=== PATIENT | female | born 1980 | race Caucasian/White ===

== ENCOUNTER 2018-11-02 20:37 | Inpatient (IN) | payer MEDICAID ==
[~2018-11-02] VITALS: Ht 162.6 cm; Wt 57.6 kg
[2018-11-06 07:17] VITALS: BP 109/59
== END 2018-11-06 11:45 | disposition home or self-care (01) | DRG 441 ==
LOC: ED 21:20 → EDIP 22:09 → 4EST 11-03 05:39 → DCLOUNGE 11-06 11:38
PROVIDERS: ADMIT Internal Medicine; ATTEND Internal Medicine
PROC: 0W9G3ZZ Drainage of Peritoneal Cavity, Percutaneous Approach (ICD-10-PCS; 2018-11-03)
PROC: 0W9G3ZZ Drainage of Peritoneal Cavity, Percutaneous Approach (ICD-10-PCS; principal; 2018-11-05)
DX: K72.90 Hepatic failure, unspecified without coma (principal); E43 Unspecified severe protein-calorie malnutrition; D61.818 Other pancytopenia; E87.1 Hypo-osmolality and hyponatremia; E87.2 Acidosis; K76.6 Portal hypertension; I85.10 Secondary esophageal varices without bleeding; K70.31 Alcoholic cirrhosis of liver with ascites; B18.2 Chronic viral hepatitis C; Z68.21 Body mass index [BMI] 21.0-21.9, adult; D53.9 Nutritional anemia, unspecified; D69.59 Other secondary thrombocytopenia; E87.6 Hypokalemia; F10.21 Alcohol dependence, in remission; F17.210 Nicotine dependence, cigarettes, uncomplicated; K31.89 Other diseases of stomach and duodenum; K80.20 Calculus of gallbladder without cholecystitis without obstruction; Z98.51 Tubal ligation status
CPT/HCPCS: 36415; 83036; 99285; J3490; 49083; 76700; 80053; 80061; 81001; 82140; 82436; 82607; 83690; 83735; 83930; 83935; 84133; 84300; 84439; 84443; 85025; 85610; 93005; G0378; P9047

== ENCOUNTER 2019-03-10 18:57 | Inpatient (IN) | payer MEDICAID, OTHER ==
[~2019-03-10] VITALS: Ht 162.6 cm; Wt 54.2 kg
[~2019-03-10 18:57] MED LIST: FURO-92 PO; FURO40TA6 PO; LACT10SO28 PO; LACT20SO13 PO; MIDO10TA PO; SOFO1TAB PO; SPIR100T4 PO; SPIR50TA4 PO; SULF1TAB24 PO
--- NOTE | 2019-03-10 19:09 | NUR ---
38y f bib ems from home for sob, pt states feels pressure on diaphragm, pt has liver failure and gets drained once a week it has been 12 days since last drained. pt connected to all monitors vss, call light in reach
--- NOTE | 2019-03-10 19:10 | NUR ---
pa at bedside
--- NOTE | 2019-03-10 19:41 | NUR ---
PT EDUCATED ON NEED FOR URINE SAMPLE PT STS UNABLE TO WALK TO RESTROOM. OFFERED STRAIGHT CATH, PA TO BE UPDATED
[2019-03-10 19:55] LABS: ALANINE AMINOTRANSFERASE 25 U/L (12-78); ALBUMIN 2.2 g/dL (3.4-5.0); ANION GAP 8 mmol/L (5-15); CALCIUM 7.6 mg/dL (8.5-10.1); CHLORIDE 100 mmol/L (98-107); CREATININE 0.48 mg/dL (0.55-1.02)
[2019-03-10 19:57] LABS: ALKALINE PHOSPHATASE 157 U/L (45-117); BILIRUBIN,TOTAL 12.6 mg/dL (0.2-1.0); TOTAL PROTEIN 6.3 g/dL (6.4-8.2)
[2019-03-10 20:11] LABS: MD YES; MEAN CORPUSCULAR HEMOGLOBIN 36.9 pg (27.0-34.8); MEAN CORPUSCULAR HGB CONC 33.9 g/dL (32.4-35.8); MEAN CORPUSCULAR VOLUME 108.8 fL (80-100); MEAN PLATELET VOLUME 7.6 fL (7.4-10.4); RED BLOOD COUNT 2.11 x10^6/uL (3.82-5.3); RED CELL DISTRIBUTION WIDTH 18.2 % (9.6-15.2)
[2019-03-10 20:15] LABS: PLATELET COUNT 41 x10^3/uL (130-400)
--- NOTE | 2019-03-10 20:16 | NUR ---
CRITICAL VALUE FROM LO IN LAB PLATELET COUNT OF 41
[2019-03-10 20:19] LABS: EOS% (MANUAL) 2 % (1-7); LYMPH#(MANUAL) 0.26 x10^3/uL (1-3.4); LYMPHS% (MANUAL) 5 % (22-44); MONOS#(MANUAL) 0.57 x10^3/uL (0.3-2.7); MONOS% (MANUAL) 11 % (2-9); SEG#(MANUAL) 4.26 x10^3/uL (1.8-6.8); SEGS% (MANUAL) 82 % (42-75)
[2019-03-10 20:20] LABS: ANISOCYTOSIS 1+
[2019-03-10] MEDS ORDERED: LIDOCAINE-MPF 1%, 5ML ONE (20:20)
[2019-03-10 20:22] LABS: <PLATELET ESTIMATE> DECREASED; <PLT MORPHOLOGY> NORMAL PLT MORPH
--- NOTE | 2019-03-10 20:23 | NUR ---
PA AT BEDSIDE FOR PARACENTESIS.
--- NOTE | 2019-03-10 20:55 | NUR ---
SUCESSFUL PARACENTESIS DRAINED 3.5 LITERS
[2019-03-10 21:19] LABS: HCG UR SG 1.022 (1.003-1.030)
[2019-03-10 21:32] LABS: CULTURE INDICATED? YES; MICROSCOPIC INDICATED
[2019-03-10] MEDS ORDERED: ONDANSETRON 2MG/ML, 2ML IVPush ONE (22:30)
[2019-03-10] MEDS ORDERED: MORPHINE SULFATE 4 MG/ML, 1ML IVPush ONE (22:30)
[2019-03-10] MEDS ORDERED: CEFTRIAXONE PMX 2GM/50ML 50 ML IV ONE (22:30)
[2019-03-10] MEDS ORDERED: ONDANSETRON 2MG/ML, 2ML ONE (22:36)
[2019-03-10] MEDS ORDERED: CEFTRIAXONE PMX 2GM/50ML 50 ML ONE (22:36)
[2019-03-10] MEDS ORDERED: MORPHINE SULFATE 4 MG/ML, 1ML ONE (22:36)
[2019-03-11] MEDS ORDERED: ONDANSETRON 2MG/ML, 2ML IVPush PRN (00:30)
[2019-03-11] MEDS ORDERED: LACTULOSE 20 GM/30 ML UDC PO PRN (00:30)
[2019-03-11] MEDS ORDERED: morphine SULFATE 10 MG/ML, 1ML IVPush PRN (00:30)
[2019-03-11 01:25] VITALS: BP_SYST 112; BP_SYST 113; BP_DIAS 69
[2019-03-11] MEDS: MIDODRINE 5 MG TABLET PO SCH ×4 (01:41→21:36)
[2019-03-11 03:25] VITALS: BP 112/68
[2019-03-11 06:20] LABS: MEAN CORPUSCULAR HEMOGLOBIN 36.6 pg (27.0-34.8); MEAN CORPUSCULAR HGB CONC 33.7 g/dL (32.4-35.8); MEAN CORPUSCULAR VOLUME 108.6 fL (80-100); MEAN PLATELET VOLUME 6.9 fL (7.4-10.4); PLATELET COUNT 51 x10^3/uL (130-400); RED BLOOD COUNT 1.97 x10^6/uL (3.82-5.3); RED CELL DISTRIBUTION WIDTH 17.7 % (9.6-15.2)
[2019-03-11 06:33] LABS: ALANINE AMINOTRANSFERASE 20 U/L (12-78); ALBUMIN 1.8 g/dL (3.4-5.0); ANION GAP 6 mmol/L (5-15); CALCIUM 7.7 mg/dL (8.5-10.1); CHLORIDE 101 mmol/L (98-107); CREATININE 0.44 mg/dL (0.55-1.02)
[2019-03-11 06:35] LABS: ALKALINE PHOSPHATASE 119 U/L (45-117); BILIRUBIN,TOTAL 11.3 mg/dL (0.2-1.0); TOTAL PROTEIN 5.2 g/dL (6.4-8.2)
[2019-03-11 07:52] LABS: BASOPHILS # (AUTO) 0.04 x10^3/uL (0-0.1); BASOPHILS % (AUTO) 1 % (0-1); EOSINOPHILS # (AUTO) 0.14 x10^3/uL (0-0.4); EOSINOPHILS % (AUTO) 3 % (1-7); LYMPHOCYTES # (AUTO) 0.36 x10^3/uL (1-3.4); LYMPHOCYTES % (AUTO) 6 % (22-44); MD SCAN; MONOCYTES # (AUTO) 0.68 x10^3/uL (0.2-0.8); MONOCYTES % (AUTO) 12 % (2-9); NEUTROPHILS % (AUTO) 79 % (42-75)
[2019-03-11] MEDS: LACTULOSE 10 GM/15 ML UDC PO SCH ×3 (09:12→21:35)
[2019-03-11] MEDS: SPIRONOLACTONE 50 MG TABLET PO SCH (09:12)
[2019-03-11] MEDS: FUROSEMIDE 40 MG TABLET PO SCH ×2 (09:13→18:02)
[2019-03-11] MEDS: OMEPRAZOLE 20 MG CAPSULE.DR PO SCH (09:13)
[2019-03-11 09:24] VITALS: BP 95/62
[2019-03-11 09:29] LABS: INTERNATIONAL NORMALIZED RATIO 1.78 (0.93-1.1); PROTHROMBIN TIME 18.3 Seconds (9.6-11.5)
[2019-03-11 15:58] VITALS: BP 100/62
[2019-03-11 16:48] LABS: AMPHETAMINE SCREEN, URINE Negative (Negative); BARBITURATE SCREEN, URINE Negative (Negative); BENZODIAZEPINE SCREEN, URINE Negative (Negative); CANNABINOID SCREEN, URINE Negative (Negative); COCAINE SCREEN, URINE Negative (Negative); METHADONE SCREEN, URINE Negative (Negative); OPIATE SCREEN, URINE Negative (Negative)
[2019-03-11 21:31] VITALS: BP 94/61
[2019-03-11] MEDS: METRONIDAZOLE PMX 500MG/100ML 100 ML IV SCH (21:35)
[2019-03-11] MEDS: CEFTRIAXONE PMX 1GM/50ML 50 ML IV SCH (22:56)
[2019-03-12] VITALS (7 sets, daily range): BP systolic 92–111; BP diastolic 58–72
[2019-03-12] MEDS: METRONIDAZOLE PMX 500MG/100ML 100 ML IV SCH ×3 (04:56→21:07)
[2019-03-12 05:27] LABS: ALBUMIN 1.8 g/dL (3.4-5.0); CALCIUM 7.5 mg/dL (8.5-10.1); CHLORIDE 100 mmol/L (98-107)
[2019-03-12 05:33] LABS: ALANINE AMINOTRANSFERASE 19 U/L (12-78); ALKALINE PHOSPHATASE 127 U/L (45-117); ANION GAP 5 mmol/L (5-15); BILIRUBIN,TOTAL 9.2 mg/dL (0.2-1.0); CREATININE 0.57 mg/dL (0.55-1.02); TOTAL PROTEIN 5.2 g/dL (6.4-8.2)
[2019-03-12 05:34] LABS: MEAN CORPUSCULAR HEMOGLOBIN 36.1 pg (27.0-34.8); MEAN CORPUSCULAR HGB CONC 33.7 g/dL (32.4-35.8); MEAN CORPUSCULAR VOLUME 107.2 fL (80-100); MEAN PLATELET VOLUME 6.5 fL (7.4-10.4); PLATELET COUNT 54 x10^3/uL (130-400); RED BLOOD COUNT 1.87 x10^6/uL (3.82-5.3); RED CELL DISTRIBUTION WIDTH 17.4 % (9.6-15.2)
[2019-03-12 06:13] LABS: BASOPHILS # (AUTO) 0.02 x10^3/uL (0-0.1); BASOPHILS % (AUTO) 0 % (0-1); EOSINOPHILS # (AUTO) 0.15 x10^3/uL (0-0.4); EOSINOPHILS % (AUTO) 3 % (1-7); LYMPHOCYTES # (AUTO) 0.33 x10^3/uL (1-3.4); LYMPHOCYTES % (AUTO) 6 % (22-44); MD SCAN; MONOCYTES # (AUTO) 0.68 x10^3/uL (0.2-0.8); MONOCYTES % (AUTO) 12 % (2-9); NEUTROPHILS # (AUTO) 4.32 x10^3/uL (1.8-6.8); NEUTROPHILS % (AUTO) 79 % (42-75)
[2019-03-12] MEDS: OMEPRAZOLE 20 MG CAPSULE.DR PO SCH (09:19)
[2019-03-12] MEDS: LACTULOSE 10 GM/15 ML UDC PO SCH ×3 (09:19→21:07)
[2019-03-12] MEDS: SPIRONOLACTONE 50 MG TABLET PO SCH (09:19)
[2019-03-12] MEDS: FUROSEMIDE 40 MG TABLET PO SCH ×2 (09:19→16:14)
[2019-03-12] MEDS: MIDODRINE 5 MG TABLET PO SCH ×3 (09:20→21:08)
[2019-03-12] MEDS ORDERED: POTASSIUM PHOSPHATE 22 MEQ in SODIUM CHLORIDE 0.9% 500 ML IV ONE (20:00)
[2019-03-12] MEDS ORDERED: MAGNESIUM SULFATE PMX 4GM/100M 100 ML IV ONE (20:00)
[2019-03-12] MEDS: CEFTRIAXONE PMX 1GM/50ML 50 ML IV SCH (22:41)
[2019-03-13 02:28] VITALS: BP 97/56
[2019-03-13] MEDS: METRONIDAZOLE PMX 500MG/100ML 100 ML IV SCH ×3 (04:56→20:53)
[2019-03-13 05:41] LABS: CHLORIDE 100 mmol/L (98-107)
[2019-03-13 05:47] LABS: ALANINE AMINOTRANSFERASE 20 U/L (12-78); ALKALINE PHOSPHATASE 129 U/L (45-117); ANION GAP 7 mmol/L (5-15); BILIRUBIN,TOTAL 10.5 mg/dL (0.2-1.0); CALCIUM 7.6 mg/dL (8.5-10.1); CREATININE 0.57 mg/dL (0.55-1.02); TOTAL PROTEIN 5.6 g/dL (6.4-8.2)
[2019-03-13 06:56] LABS: BASOPHILS # (AUTO) 0.02 x10^3/uL (0-0.1); BASOPHILS % (AUTO) 0 % (0-1); EOSINOPHILS # (AUTO) 0.14 x10^3/uL (0-0.4); EOSINOPHILS % (AUTO) 3 % (1-7); LYMPHOCYTES # (AUTO) 0.35 x10^3/uL (1-3.4); LYMPHOCYTES % (AUTO) 7 % (22-44); MD SCAN; MEAN CORPUSCULAR HEMOGLOBIN 35.5 pg (27.0-34.8); MEAN CORPUSCULAR HGB CONC 33.7 g/dL (32.4-35.8); MEAN CORPUSCULAR VOLUME 105.2 fL (80-100); MEAN PLATELET VOLUME 6.9 fL (7.4-10.4); MONOCYTES # (AUTO) 0.65 x10^3/uL (0.2-0.8); MONOCYTES % (AUTO) 13 % (2-9); NEUTROPHILS # (AUTO) 3.89 x10^3/uL (1.8-6.8); NEUTROPHILS % (AUTO) 77 % (42-75); RED BLOOD COUNT 2.31 x10^6/uL (3.82-5.3); RED CELL DISTRIBUTION WIDTH 19.9 % (9.6-15.2)
[2019-03-13 07:00] LABS: PLATELET COUNT 45 x10^3/uL (130-400)
[2019-03-13 07:20] VITALS: BP 109/69
[2019-03-13] MEDS: LACTULOSE 10 GM/15 ML UDC PO SCH ×3 (09:02→20:53)
[2019-03-13] MEDS: MIDODRINE 5 MG TABLET PO SCH ×3 (09:02→20:54)
[2019-03-13] MEDS: FUROSEMIDE 40 MG TABLET PO SCH ×2 (09:02→17:33)
[2019-03-13] MEDS: SPIRONOLACTONE 50 MG TABLET PO SCH (09:02)
[2019-03-13] MEDS: OMEPRAZOLE 20 MG CAPSULE.DR PO SCH (09:02)
[2019-03-13 14:22] VITALS: BP 110/70
[2019-03-13] MEDS ORDERED: LIDOCAINE 1%, 10ML ONE (16:32)
[2019-03-13 19:11] VITALS: BP 113/74
[2019-03-13] MEDS: CEFTRIAXONE PMX 1GM/50ML 50 ML IV SCH (22:28)
[2019-03-14 02:10] VITALS: BP 99/60
[2019-03-14] MEDS: METRONIDAZOLE PMX 500MG/100ML 100 ML IV SCH ×2 (05:10→14:53)
[2019-03-14 05:12] LABS: INTERNATIONAL NORMALIZED RATIO 2.04 (0.93-1.1); PROTHROMBIN TIME 20.8 Seconds (9.6-11.5)
[2019-03-14 05:16] LABS: ALANINE AMINOTRANSFERASE 13 U/L (12-78); ALBUMIN 1.8 g/dL (3.4-5.0); ANION GAP 8 mmol/L (5-15); CALCIUM 7.5 mg/dL (8.5-10.1); CHLORIDE 99 mmol/L (98-107); MEAN CORPUSCULAR HEMOGLOBIN 35.6 pg (27.0-34.8); MEAN CORPUSCULAR HGB CONC 33.9 g/dL (32.4-35.8); MEAN CORPUSCULAR VOLUME 105.1 fL (80-100); RED BLOOD COUNT 2.22 x10^6/uL (3.82-5.3); RED CELL DISTRIBUTION WIDTH 19.4 % (9.6-15.2)
[2019-03-14 05:18] LABS: ALKALINE PHOSPHATASE 117 U/L (45-117); CREATININE 0.58 mg/dL (0.55-1.02); TOTAL PROTEIN 5.3 g/dL (6.4-8.2)
[2019-03-14 05:56] LABS: MEAN PLATELET VOLUME 7.6 fL (7.4-10.4); PLATELET COUNT 51 x10^3/uL (130-400)
[2019-03-14 05:58] LABS: BASOPHILS # (AUTO) 0.02 x10^3/uL (0-0.1); BASOPHILS % (AUTO) 0 % (0-1); EOSINOPHILS # (AUTO) 0.12 x10^3/uL (0-0.4); EOSINOPHILS % (AUTO) 3 % (1-7); LYMPHOCYTES # (AUTO) 0.35 x10^3/uL (1-3.4); LYMPHOCYTES % (AUTO) 8 % (22-44); MD SCAN; MONOCYTES % (AUTO) 11 % (2-9); NEUTROPHILS # (AUTO) 3.41 x10^3/uL (1.8-6.8); NEUTROPHILS % (AUTO) 78 % (42-75)
[2019-03-14 06:58] VITALS: BP 100/54
[2019-03-14] MEDS ORDERED: POTASSIUM CHLORIDE 20 MEQ TAB.ER.PRT PO ONE (08:30)
[2019-03-14] MEDS: MIDODRINE 5 MG TABLET PO SCH (08:54)
[2019-03-14] MEDS: LACTULOSE 10 GM/15 ML UDC PO SCH (08:54)
[2019-03-14] MEDS: FUROSEMIDE 40 MG TABLET PO SCH (08:55)
[2019-03-14] MEDS: OMEPRAZOLE 20 MG CAPSULE.DR PO SCH (08:55)
[2019-03-14] MEDS: SPIRONOLACTONE 50 MG TABLET PO SCH (08:55)
[2019-03-14] MEDS ORDERED: CEFD300C37 PO (10:24)
[2019-03-14] MEDS ORDERED: METR500T PO (10:24)
[2019-03-14] MEDS ORDERED: POTA20TA6 PO (10:31)
[2019-03-14 13:50] VITALS: BP 94/55
[2019-03-15] MEDS ORDERED: POTASSIUM CHLORIDE 20 MEQ TAB.ER.PRT PO SCH (08:00)
== END 2019-03-14 18:30 | disposition home or self-care (01) | DRG 871 ==
LOC: ED 20:31 → 3N 23:49
PROVIDERS: ADMIT Family Medicine; ATTEND Internal Medicine
PROC: 0W9G3ZZ Drainage of Peritoneal Cavity, Percutaneous Approach (ICD-10-PCS; 2019-03-10)
PROC: 30233N1 Transfusion of Nonautologous Red Blood Cells into Peripheral Vein, Percutaneous Approach (ICD-10-PCS; principal; 2019-03-12)
PROC: 0W9G3ZZ Drainage of Peritoneal Cavity, Percutaneous Approach (ICD-10-PCS; 2019-03-13)
DX: A41.9 Sepsis, unspecified organism (principal); E43 Unspecified severe protein-calorie malnutrition; K65.2 Spontaneous bacterial peritonitis; K76.6 Portal hypertension; N39.0 Urinary tract infection, site not specified; K70.11 Alcoholic hepatitis with ascites; K72.90 Hepatic failure, unspecified without coma; K70.31 Alcoholic cirrhosis of liver with ascites; B18.2 Chronic viral hepatitis C; D64.9 Anemia, unspecified; D69.6 Thrombocytopenia, unspecified; E83.42 Hypomagnesemia; E87.6 Hypokalemia; I27.20 Pulmonary hypertension, unspecified; Z68.20 Body mass index [BMI] 20.0-20.9, adult
CPT/HCPCS: 36415; 82042; 84145; 89051; 96365; 99285; J3490; 36430; 49083; 80053; 80307; 81001; 81025; 83605; 83615; 83690; 83735; 84100; 85025; 85610; 86850; 86900; 86923; 87040; 87070; 87086; 87205; G0378; J0696; J3475; J7040; P9016

== ENCOUNTER 2019-04-04 17:36 | Inpatient (IN) | payer OTHER ==
[~2019-04-04] VITALS: Ht 162.6 cm; Wt 60.2 kg
[~2019-04-04 17:36] MED LIST changes: +CEFD300C37 PO; +METR500T PO; +POTA20TA6 PO
[2019-04-04] MEDS ORDERED: CHOL100012 PO (17:54)
[2019-04-04] MEDS ORDERED: FURO-93 PO (17:54)
[2019-04-04] MEDS ORDERED: RIFA550T4 PO (17:54)
[2019-04-04] MEDS ORDERED: FAMO-79 PO (17:54)
[2019-04-04] MEDS ORDERED: PANT40TA5 PO (17:54)
[2019-04-04] MEDS ORDERED: LIDOCAINE 1%, 10ML ONE (18:15)
[2019-04-04] MEDS ORDERED: ONDANSETRON 2MG/ML, 2ML IVPush PRN (20:30)
[2019-04-04] MEDS: SODIUM CHLORIDE FLUSH 10ML SYR IVF SCH (20:39)
[2019-04-04] MEDS ORDERED: CEFTRIAXONE PMX 1GM/50ML 50 ML ONE (20:41)
[2019-04-04] MEDS: CEFTRIAXONE PMX 1GM/50ML 50 ML IV SCH (20:48)
[2019-04-04] MEDS: LACTULOSE 20 GM/30 ML UDC PO SCH (21:00)
[2019-04-04] MEDS: RIFAXIMIN 550 MG TABLET PO SCH (21:00)
[2019-04-04] MEDS: MIDODRINE 5 MG TABLET PO SCH (23:26)
[2019-04-04 23:59] VITALS: BP 101/65
[2019-04-05] MEDS ORDERED: PHARMACOKINETIC MONITORING MC PRN (00:30)
[2019-04-05 00:47] VITALS: BP 101/65
[2019-04-05] MEDS: VANCOMYCIN 1,200 MG in SODIUM CHLORIDE 0.9% 250 ML IV SCH ×2 (01:31→12:42)
[2019-04-05 05:46] LABS: ALANINE AMINOTRANSFERASE 18 U/L (12-78); ALBUMIN 1.5 g/dL (3.4-5.0); ANION GAP 7 mmol/L (5-15); CHLORIDE 106 mmol/L (98-107); CREATININE 0.64 mg/dL (0.55-1.02)
[2019-04-05 05:50] LABS: ALKALINE PHOSPHATASE 83 U/L (45-117); BILIRUBIN,TOTAL 9.5 mg/dL (0.2-1.0); TOTAL PROTEIN 5.4 g/dL (6.4-8.2)
[2019-04-05 06:14] LABS: MEAN CORPUSCULAR HEMOGLOBIN 37.1 pg (27.0-34.8); MEAN CORPUSCULAR HGB CONC 33.9 g/dL (32.4-35.8); MEAN CORPUSCULAR VOLUME 109.4 fL (80-100); RED BLOOD COUNT 2.32 x10^6/uL (3.82-5.3); RED CELL DISTRIBUTION WIDTH 18.2 % (9.6-15.2)
[2019-04-05 06:17] LABS: BASOPHILS % (AUTO) 0 % (0-1); EOSINOPHILS # (AUTO) 0.01 x10^3/uL (0-0.4); EOSINOPHILS % (AUTO) 0 % (1-7); LYMPHOCYTES # (AUTO) 0.36 x10^3/uL (1-3.4); LYMPHOCYTES % (AUTO) 3 % (22-44); MD SCAN; MONOCYTES # (AUTO) 1.08 x10^3/uL (0.2-0.8); MONOCYTES % (AUTO) 8 % (2-9); NEUTROPHILS # (AUTO) 11.49 x10^3/uL (1.8-6.8); NEUTROPHILS % (AUTO) 89 % (42-75); PLATELET COUNT 62 x10^3/uL (130-400)
[2019-04-05 06:19] LABS: MEAN PLATELET VOLUME 6.3 fL (7.4-10.4)
[2019-04-05 06:58] VITALS: BP 93/57
[2019-04-05] MEDS ORDERED: VANCOMYCIN PER PHARMACY MC PRN (08:00)
[2019-04-05] MEDS: SPIRONOLACTONE 50 MG TABLET PO SCH (08:57)
[2019-04-05] MEDS: EPCLUSA PO SCH (09:00)
[2019-04-05] MEDS: MIDODRINE 5 MG TABLET PO SCH ×3 (09:00→22:39)
[2019-04-05] MEDS: FAMOTIDINE 10 MG TAB PO SCH (09:19)
[2019-04-05] MEDS: LACTULOSE 20 GM/30 ML UDC PO SCH ×3 (09:19→22:39)
[2019-04-05] MEDS: FUROSEMIDE 40 MG TABLET PO SCH ×2 (09:20→16:42)
[2019-04-05] MEDS: POTASSIUM CHLORIDE 20 MEQ TAB.ER.PRT PO SCH (09:20)
[2019-04-05] MEDS: RIFAXIMIN 550 MG TABLET PO SCH ×2 (09:20→22:39)
[2019-04-05] MEDS: CHOLECALCIFEROL 1,000 UNIT TABLET PO SCH (09:20)
[2019-04-05] MEDS: SODIUM CHLORIDE FLUSH 10ML SYR IVF SCH ×2 (09:21→20:21)
[2019-04-05] MEDS: ALBUMIN HUMAN 25% 50 ML IV SCH ×2 (10:26→16:42)
[2019-04-05 13:25] LABS: BASOPHILS # (AUTO) 0.03 x10^3/uL (0-0.1); BASOPHILS % (AUTO) 0 % (0-1); EOSINOPHILS # (AUTO) 0.02 x10^3/uL (0-0.4); EOSINOPHILS % (AUTO) 0 % (1-7); LYMPHOCYTES # (AUTO) 0.37 x10^3/uL (1-3.4); LYMPHOCYTES % (AUTO) 3 % (22-44); MD SCAN; MEAN CORPUSCULAR HEMOGLOBIN 37.3 pg (27.0-34.8); MEAN CORPUSCULAR VOLUME 109.7 fL (80-100); MEAN PLATELET VOLUME 7.2 fL (7.4-10.4); MONOCYTES # (AUTO) 0.85 x10^3/uL (0.2-0.8); MONOCYTES % (AUTO) 7 % (2-9); NEUTROPHILS # (AUTO) 10.88 x10^3/uL (1.8-6.8); NEUTROPHILS % (AUTO) 90 % (42-75); PLATELET COUNT 52 x10^3/uL (130-400); RED BLOOD COUNT 2.45 x10^6/uL (3.82-5.3); RED CELL DISTRIBUTION WIDTH 18.5 % (9.6-15.2)
[2019-04-05 14:03] LABS: MICROSCOPIC INDICATED
[2019-04-05 15:20] VITALS: BP 99/61
[2019-04-05 19:18] VITALS: BP 101/61
[2019-04-05] MEDS: CEFTRIAXONE PMX 1GM/50ML 50 ML IV SCH (20:21)
[2019-04-05 22:24] VITALS: BP_SYST 100; BP_SYST 95; BP_DIAS 60
[2019-04-06] VITALS (8 sets, daily range): BP systolic 99–121; BP diastolic 60–74
[2019-04-06] MEDS: VANCOMYCIN 1,200 MG in SODIUM CHLORIDE 0.9% 250 ML IV SCH ×2 (00:55→15:20)
[2019-04-06] MEDS: ALBUMIN HUMAN 25% 50 ML IV SCH (03:15)
[2019-04-06 06:23] LABS: MEAN CORPUSCULAR HGB CONC 33.9 g/dL (32.4-35.8); MEAN CORPUSCULAR VOLUME 109.3 fL (80-100); RED BLOOD COUNT 1.93 x10^6/uL (3.82-5.3); RED CELL DISTRIBUTION WIDTH 17.7 % (9.6-15.2)
[2019-04-06 06:24] LABS: CHLORIDE 104 mmol/L (98-107)
[2019-04-06 06:33] LABS: ALANINE AMINOTRANSFERASE 16 U/L (12-78); ALKALINE PHOSPHATASE 76 U/L (45-117); ANION GAP 8 mmol/L (5-15); BILIRUBIN,TOTAL 8.4 mg/dL (0.2-1.0); CALCIUM 7.6 mg/dL (8.5-10.1); CREATININE 0.45 mg/dL (0.55-1.02); TOTAL PROTEIN 5.1 g/dL (6.4-8.2)
[2019-04-06 06:49] LABS: MEAN PLATELET VOLUME 7.4 fL (7.4-10.4)
[2019-04-06 06:50] LABS: BASOPHILS # (AUTO) 0.03 x10^3/uL (0-0.1); BASOPHILS % (AUTO) 0 % (0-1); EOSINOPHILS # (AUTO) 0.05 x10^3/uL (0-0.4); EOSINOPHILS % (AUTO) 1 % (1-7); LYMPHOCYTES # (AUTO) 0.26 x10^3/uL (1-3.4); LYMPHOCYTES % (AUTO) 4 % (22-44); MD SCAN; MONOCYTES # (AUTO) 0.77 x10^3/uL (0.2-0.8); MONOCYTES % (AUTO) 11 % (2-9); NEUTROPHILS # (AUTO) 6.15 x10^3/uL (1.8-6.8); NEUTROPHILS % (AUTO) 85 % (42-75)
[2019-04-06] MEDS: FUROSEMIDE 40 MG TABLET PO SCH ×2 (08:40→16:10)
[2019-04-06] MEDS: RIFAXIMIN 550 MG TABLET PO SCH ×2 (08:40→20:43)
[2019-04-06] MEDS: POTASSIUM CHLORIDE 20 MEQ TAB.ER.PRT PO SCH (08:40)
[2019-04-06] MEDS: SPIRONOLACTONE 50 MG TABLET PO SCH (08:40)
[2019-04-06] MEDS: CHOLECALCIFEROL 1,000 UNIT TABLET PO SCH (08:40)
[2019-04-06] MEDS: SODIUM CHLORIDE FLUSH 10ML SYR IVF SCH ×2 (08:41→20:43)
[2019-04-06] MEDS: LACTULOSE 20 GM/30 ML UDC PO SCH ×3 (08:41→20:43)
[2019-04-06] MEDS: FAMOTIDINE 10 MG TAB PO SCH (08:41)
[2019-04-06] MEDS: MIDODRINE 5 MG TABLET PO SCH ×3 (08:41→20:43)
[2019-04-06] MEDS: EPCLUSA PO SCH (08:42)
[2019-04-06 08:47] LABS: PLATELET COUNT 46 x10^3/uL (130-400)
[2019-04-06] MEDS ORDERED: POTASSIUM CHLORIDE 20 MEQ TAB.ER.PRT PO ONE (09:00)
[2019-04-06] MEDS: CEFTRIAXONE PMX 1GM/50ML 50 ML IV SCH (20:43)
[2019-04-07 03:41] VITALS: BP 97/55
[2019-04-07 07:41] LABS: CALCIUM 7.7 mg/dL (8.5-10.1)
[2019-04-07 07:55] LABS: ANION GAP 9 mmol/L (5-15); CHLORIDE 101 mmol/L (98-107)
[2019-04-07 07:58] VITALS: BP 108/72
[2019-04-07 08:26] LABS: BASOPHILS # (AUTO) 0.06 x10^3/uL (0-0.1); BASOPHILS % (AUTO) 1 % (0-1); EOSINOPHILS # (AUTO) 0.04 x10^3/uL (0-0.4); EOSINOPHILS % (AUTO) 1 % (1-7); LYMPHOCYTES # (AUTO) 0.42 x10^3/uL (1-3.4); LYMPHOCYTES % (AUTO) 5 % (22-44); MD SCAN; MEAN CORPUSCULAR HEMOGLOBIN 36.3 pg (27.0-34.8); MEAN CORPUSCULAR HGB CONC 34.5 g/dL (32.4-35.8); MEAN CORPUSCULAR VOLUME 105.3 fL (80-100); MEAN PLATELET VOLUME 7.2 fL (7.4-10.4); MONOCYTES # (AUTO) 0.78 x10^3/uL (0.2-0.8); MONOCYTES % (AUTO) 10 % (2-9); NEUTROPHILS # (AUTO) 6.66 x10^3/uL (1.8-6.8); NEUTROPHILS % (AUTO) 84 % (42-75); PLATELET COUNT 50 x10^3/uL (130-400); RED BLOOD COUNT 2.56 x10^6/uL (3.82-5.3); RED CELL DISTRIBUTION WIDTH 20.2 % (9.6-15.2)
[2019-04-07] MEDS: EPCLUSA PO SCH (09:00)
[2019-04-07] MEDS: FAMOTIDINE 10 MG TAB PO SCH (10:28)
[2019-04-07] MEDS: LACTULOSE 20 GM/30 ML UDC PO SCH ×3 (10:28→20:20)
[2019-04-07] MEDS: CHOLECALCIFEROL 1,000 UNIT TABLET PO SCH (10:29)
[2019-04-07] MEDS: RIFAXIMIN 550 MG TABLET PO SCH ×2 (10:29→20:20)
[2019-04-07] MEDS: MIDODRINE 5 MG TABLET PO SCH ×3 (10:30→20:20)
[2019-04-07] MEDS: POTASSIUM CHLORIDE 20 MEQ TAB.ER.PRT PO SCH (10:30)
[2019-04-07] MEDS: FUROSEMIDE 40 MG TABLET PO SCH ×2 (10:30→17:50)
[2019-04-07] MEDS: SPIRONOLACTONE 50 MG TABLET PO SCH (10:31)
[2019-04-07] MEDS: SODIUM CHLORIDE FLUSH 10ML SYR IVF SCH ×2 (10:31→20:20)
[2019-04-07] MEDS: morphine SULFATE 10 MG/ML, 1ML IVPush PRN ×2 (10:31→17:50)
[2019-04-07 14:08] VITALS: BP 107/71
[2019-04-07] MEDS ORDERED: POTASSIUM CHLORIDE 20 MEQ TAB.ER.PRT PO ONE (16:00)
[2019-04-07 19:34] VITALS: BP 116/70
[2019-04-07] MEDS: CEFTRIAXONE PMX 1GM/50ML 50 ML IV SCH (20:19)
[2019-04-08 00:43] VITALS: BP 112/71
[2019-04-08 06:07] LABS: MEAN CORPUSCULAR HEMOGLOBIN 35.8 pg (27.0-34.8); MEAN CORPUSCULAR HGB CONC 34.2 g/dL (32.4-35.8); MEAN CORPUSCULAR VOLUME 104.6 fL (80-100); MEAN PLATELET VOLUME 7.3 fL (7.4-10.4); RED CELL DISTRIBUTION WIDTH 19.5 % (9.6-15.2)
[2019-04-08 06:09] LABS: PLATELET COUNT 45 x10^3/uL (130-400)
[2019-04-08 06:13] LABS: ANION GAP 9 mmol/L (5-15); CALCIUM 7.1 mg/dL (8.5-10.1); CHLORIDE 100 mmol/L (98-107)
[2019-04-08 06:15] LABS: CREATININE 0.46 mg/dL (0.55-1.02)
[2019-04-08 06:42] LABS: BASOPHILS # (AUTO) 0.03 x10^3/uL (0-0.1); BASOPHILS % (AUTO) 0 % (0-1); EOSINOPHILS # (AUTO) 0.12 x10^3/uL (0-0.4); EOSINOPHILS % (AUTO) 1 % (1-7); LYMPHOCYTES # (AUTO) 0.51 x10^3/uL (1-3.4); LYMPHOCYTES % (AUTO) 6 % (22-44); MD SCAN; MONOCYTES # (AUTO) 1.04 x10^3/uL (0.2-0.8); MONOCYTES % (AUTO) 13 % (2-9); NEUTROPHILS # (AUTO) 6.39 x10^3/uL (1.8-6.8); NEUTROPHILS % (AUTO) 79 % (42-75)
[2019-04-08] MEDS ORDERED: POTASSIUM CHLORIDE 20 MEQ TAB.ER.PRT PO ONE (07:00)
[2019-04-08 07:30] VITALS: BP 100/64
[2019-04-08] MEDS: POTASSIUM CHLORIDE 20 MEQ TAB.ER.PRT PO SCH ×2 (08:15→16:10)
[2019-04-08] MEDS: SPIRONOLACTONE 50 MG TABLET PO SCH (08:15)
[2019-04-08] MEDS: RIFAXIMIN 550 MG TABLET PO SCH ×2 (08:15→21:03)
[2019-04-08] MEDS: FAMOTIDINE 10 MG TAB PO SCH (08:15)
[2019-04-08] MEDS: FUROSEMIDE 40 MG TABLET PO SCH ×2 (08:15→16:10)
[2019-04-08] MEDS: LACTULOSE 20 GM/30 ML UDC PO SCH ×3 (08:15→21:03)
[2019-04-08] MEDS: EPCLUSA PO SCH (08:16)
[2019-04-08] MEDS: CHOLECALCIFEROL 1,000 UNIT TABLET PO SCH (08:16)
[2019-04-08] MEDS: MIDODRINE 5 MG TABLET PO SCH ×3 (08:16→21:03)
[2019-04-08] MEDS: SODIUM CHLORIDE FLUSH 10ML SYR IVF SCH ×2 (08:16→21:04)
[2019-04-08 14:15] VITALS: BP 109/71
[2019-04-08] MEDS ORDERED: CEFD300C37 PO (14:21)
[2019-04-08] MEDS ORDERED: POTA20TA6 PO (14:21)
[2019-04-08] MEDS: morphine SULFATE 10 MG/ML, 1ML IVPush PRN (16:11)
[2019-04-08 19:47] VITALS: BP 108/71
[2019-04-08] MEDS: CEFTRIAXONE PMX 1GM/50ML 50 ML IV SCH (21:02)
[2019-04-09 01:37] VITALS: BP 98/64
[2019-04-09 05:10] LABS: ANION GAP 7 mmol/L (5-15); CALCIUM 7.5 mg/dL (8.5-10.1); CHLORIDE 97 mmol/L (98-107); CREATININE 0.49 mg/dL (0.55-1.02)
[2019-04-09 06:00] LABS: BASOPHILS # (AUTO) 0.05 x10^3/uL (0-0.1); BASOPHILS % (AUTO) 1 % (0-1); EOSINOPHILS # (AUTO) 0.08 x10^3/uL (0-0.4); EOSINOPHILS % (AUTO) 1 % (1-7); LYMPHOCYTES # (AUTO) 0.44 x10^3/uL (1-3.4); LYMPHOCYTES % (AUTO) 5 % (22-44); MD SCAN; MEAN CORPUSCULAR HEMOGLOBIN 36.2 pg (27.0-34.8); MEAN CORPUSCULAR HGB CONC 34.3 g/dL (32.4-35.8); MEAN CORPUSCULAR VOLUME 105.6 fL (80-100); MEAN PLATELET VOLUME 6.8 fL (7.4-10.4); MONOCYTES # (AUTO) 1.26 x10^3/uL (0.2-0.8); MONOCYTES % (AUTO) 13 % (2-9); NEUTROPHILS # (AUTO) 7.62 x10^3/uL (1.8-6.8); NEUTROPHILS % (AUTO) 81 % (42-75); PLATELET COUNT 53 x10^3/uL (130-400); RED BLOOD COUNT 2.52 x10^6/uL (3.82-5.3); RED CELL DISTRIBUTION WIDTH 19.3 % (9.6-15.2)
[2019-04-09 07:30] VITALS: BP 103/65
[2019-04-09] MEDS: LACTULOSE 20 GM/30 ML UDC PO SCH ×2 (08:52→16:00)
[2019-04-09] MEDS: FAMOTIDINE 10 MG TAB PO SCH (08:52)
[2019-04-09] MEDS: CHOLECALCIFEROL 1,000 UNIT TABLET PO SCH (08:53)
[2019-04-09] MEDS: RIFAXIMIN 550 MG TABLET PO SCH (08:53)
[2019-04-09] MEDS: POTASSIUM CHLORIDE 20 MEQ TAB.ER.PRT PO SCH (08:53)
[2019-04-09] MEDS: MIDODRINE 5 MG TABLET PO SCH ×2 (08:54→16:00)
[2019-04-09] MEDS: EPCLUSA PO SCH (08:55)
[2019-04-09] MEDS: SODIUM CHLORIDE FLUSH 10ML SYR IVF SCH (08:55)
[2019-04-09] MEDS: FUROSEMIDE 40 MG TABLET PO SCH (08:55)
[2019-04-09] MEDS: SPIRONOLACTONE 50 MG TABLET PO SCH (09:04)
[2019-04-09 12:48] VITALS: BP 106/69
[2019-04-09] MEDS: morphine SULFATE 10 MG/ML, 1ML IVPush PRN (13:15)
[2019-04-09] MEDS ORDERED: LIDOCAINE 1%, 10ML ONE (13:38)
== END 2019-04-09 17:01 | disposition home or self-care (01) | DRG 871 ==
LOC: ED 19:07 → EDIP 19:44 → 3N 23:51
PROVIDERS: ADMIT Internal Medicine; ATTEND Hospitalist
PROC: 0W993ZZ Drainage of Right Pleural Cavity, Percutaneous Approach (ICD-10-PCS; principal; 2019-04-04)
PROC: 0W9G3ZZ Drainage of Peritoneal Cavity, Percutaneous Approach (ICD-10-PCS; 2019-04-05)
PROC: 30233N1 Transfusion of Nonautologous Red Blood Cells into Peripheral Vein, Percutaneous Approach (ICD-10-PCS; 2019-04-06)
DX: A41.9 Sepsis, unspecified organism (principal); E43 Unspecified severe protein-calorie malnutrition; J18.9 Pneumonia, unspecified organism; R65.21 Severe sepsis with septic shock; D68.9 Coagulation defect, unspecified; I85.00 Esophageal varices without bleeding; K76.6 Portal hypertension; N13.30 Unspecified hydronephrosis; J91.8 Pleural effusion in other conditions classified elsewhere; B19.20 Unspecified viral hepatitis C without hepatic coma; B35.9 Dermatophytosis, unspecified; B96.1 Klebsiella pneumoniae [K. pneumoniae] as the cause of diseases classified elsewhere; B96.89 Other specified bacterial agents as the cause of diseases classified elsewhere; D63.8 Anemia in other chronic diseases classified elsewhere; D69.59 Other secondary thrombocytopenia; D75.89 Other specified diseases of blood and blood-forming organs; E87.6 Hypokalemia; F10.21 Alcohol dependence, in remission; I27.20 Pulmonary hypertension, unspecified; K31.89 Other diseases of stomach and duodenum; K70.31 Alcoholic cirrhosis of liver with ascites; K80.20 Calculus of gallbladder without cholecystitis without obstruction; K72.90 Hepatic failure, unspecified without coma; Z66 Do not resuscitate; Z87.891 Personal history of nicotine dependence; Z68.22 Body mass index [BMI] 22.0-22.9, adult
CPT/HCPCS: 32555; 36415; 82042; 82945; 89051; 99285; J3490; 49083; 80048; 80053; 80202; 81001; 82140; 82607; 83615; 84157; 85025; 86850; 86900; 86923; 87070; 87075; 87077; 87186; 87205; 88112; 88305; 93005; G0378; J0696; J3370; P9047; J2270; J7050; P9016

== ENCOUNTER 2019-05-05 19:27 | Inpatient (IN) | payer MEDICAID, OTHER ==
[~2019-05-05] VITALS: Ht 162.6 cm; Wt 59.3 kg
[~2019-05-05 19:27] MED LIST changes: +CHOL100012 PO; +FAMO-79 PO; +FURO-93 PO; +PANT40TA5 PO; +RIFA550T4 PO
--- NOTE | 2019-05-05 19:48 | NUR ---
BIB EMS FROM [facility] ED FOR NEED FOR PARACENTESIS. PT ABDOMEN IS DISTENDED, PT IS JUANDICED WHICH IS BASELINE. DENIES ANY DISTRESS, DENIES PAIN. DENIES SOB OR CP. NO N/V/D PIPE ORGAN TUNER AND REPAIRER AT BEDSIDE. VS STABLE. EKG COMPLETE
[2019-05-05] MEDS ORDERED: SODIUM CHLORIDE FLUSH 10ML SYR IVF ONE (20:00)
[2019-05-05 20:34] LABS: MEAN CORPUSCULAR HEMOGLOBIN 36.7 pg (27.0-34.8); MEAN CORPUSCULAR HGB CONC 34.5 g/dL (32.4-35.8); MEAN CORPUSCULAR VOLUME 106.3 fL (80-100); RED BLOOD COUNT 2.55 x10^6/uL (3.82-5.3); RED CELL DISTRIBUTION WIDTH 15.7 % (9.6-15.2)
[2019-05-05 20:35] LABS: INTERNATIONAL NORMALIZED RATIO 1.39 (0.93-1.1); PROTHROMBIN TIME 14.8 Seconds (9.6-11.5)
[2019-05-05 20:36] LABS: MICROSCOPIC INDICATED
[2019-05-05 20:36] LABS: ALANINE AMINOTRANSFERASE 25 U/L (12-78); ALBUMIN 1.8 g/dL (3.4-5.0); ANION GAP 6 mmol/L (5-15); CALCIUM 7.8 mg/dL (8.5-10.1); CHLORIDE 106 mmol/L (98-107); CREATININE 0.51 mg/dL (0.55-1.02)
[2019-05-05 20:39] LABS: CULTURE INDICATED? YES
[2019-05-05 20:40] LABS: ALKALINE PHOSPHATASE 148 U/L (45-117); BILIRUBIN,TOTAL 6.3 mg/dL (0.2-1.0); TOTAL PROTEIN 6.8 g/dL (6.4-8.2)
[2019-05-05 20:53] LABS: BASOPHILS # (AUTO) 0.03 x10^3/uL (0-0.1); BASOPHILS % (AUTO) 1 % (0-1); EOSINOPHILS # (AUTO) 0.07 x10^3/uL (0-0.4); EOSINOPHILS % (AUTO) 2 % (1-7); LYMPHOCYTES # (AUTO) 0.44 x10^3/uL (1-3.4); LYMPHOCYTES % (AUTO) 10 % (22-44); MD SCAN; MONOCYTES # (AUTO) 0.48 x10^3/uL (0.2-0.8); MONOCYTES % (AUTO) 11 % (2-9); NEUTROPHILS # (AUTO) 3.29 x10^3/uL (1.8-6.8); NEUTROPHILS % (AUTO) 76 % (42-75); PLATELET COUNT 82 x10^3/uL (130-400)
--- NOTE | 2019-05-05 21:22 | NUR ---
GIVEN WARM BLANKET. PT WATCHING TV, CALL LIGHT IN REACH. NO FURTHER NEEDS. VS STABLE
--- NOTE | 2019-05-05 21:37 | NUR ---
PT STATES SHE HAS HEADACHE, AWARE, GIVEN SIPS OF WATER
[2019-05-05] MEDS ORDERED: FLUCONAZOLE 100 MG TABLET ONE (22:16)
[2019-05-05] MEDS ORDERED: FLUCONAZOLE 100 MG TABLET PO ONE (22:30)
--- NOTE | 2019-05-05 23:06 | NUR ---
MEDICATED PER ORDERS. VS STABLE. AWAITING CT RESULTS
--- NOTE | 2019-05-05 23:41 | NUR ---
YEMI CHÁVEZ AT BEDSIDE DISCUSSING POC FOR ADMIT
[2019-05-06] MEDS ORDERED: ONDANSETRON 2MG/ML, 2ML IVPush PRN
--- NOTE | 2019-05-06 00:13 | NUR ---
REPORT TO RN, MED TELE
[2019-05-06 00:45] VITALS: BP 115/77
[2019-05-06] MEDS ORDERED: POTASSIUM CHLORIDE 20 MEQ TAB.ER.PRT PO ONE (03:00)
[2019-05-06 06:08] LABS: CHLORIDE 108 mmol/L (98-107)
[2019-05-06 06:13] LABS: MEAN CORPUSCULAR HEMOGLOBIN 36.1 pg (27.0-34.8); MEAN CORPUSCULAR HGB CONC 34.1 g/dL (32.4-35.8); MEAN CORPUSCULAR VOLUME 105.9 fL (80-100); RED BLOOD COUNT 2.16 x10^6/uL (3.82-5.3); RED CELL DISTRIBUTION WIDTH 15.3 % (9.6-15.2)
[2019-05-06 06:16] LABS: ALANINE AMINOTRANSFERASE 19 U/L (12-78); ALBUMIN 1.5 g/dL (3.4-5.0); ALKALINE PHOSPHATASE 138 U/L (45-117); ANION GAP 4 mmol/L (5-15); CALCIUM 7.2 mg/dL (8.5-10.1); CREATININE 0.41 mg/dL (0.55-1.02); TOTAL PROTEIN 5.6 g/dL (6.4-8.2)
[2019-05-06 06:29] LABS: BASOPHILS # (AUTO) 0.01 x10^3/uL (0-0.1); BASOPHILS % (AUTO) 0 % (0-1); EOSINOPHILS # (AUTO) 0.08 x10^3/uL (0-0.4); EOSINOPHILS % (AUTO) 2 % (1-7); LYMPHOCYTES # (AUTO) 0.43 x10^3/uL (1-3.4); LYMPHOCYTES % (AUTO) 11 % (22-44); MD SCAN; MEAN PLATELET VOLUME 5.9 fL (7.4-10.4); MONOCYTES # (AUTO) 0.49 x10^3/uL (0.2-0.8); MONOCYTES % (AUTO) 12 % (2-9); NEUTROPHILS # (AUTO) 2.95 x10^3/uL (1.8-6.8); NEUTROPHILS % (AUTO) 74 % (42-75); PLATELET COUNT 70 x10^3/uL (130-400)
[2019-05-06] MEDS ORDERED: FUROSEMIDE 40 MG TABLET PO SCH (08:00)
[2019-05-06 08:08] VITALS: BP 112/73
[2019-05-06] MEDS: FAMOTIDINE 20 MG TABLET PO SCH ×2 (09:00→20:29)
[2019-05-06] MEDS ORDERED: FLUCONAZOLE 200 MG TABLET PO SCH (09:00)
[2019-05-06] MEDS ORDERED: FAMOTIDINE 40 MG TABLET ONE ×2 (09:38→20:25)
[2019-05-06] MEDS: FUROSEMIDE 80 MG TABLET PO SCH ×2 (09:41→17:08)
[2019-05-06] MEDS: RIFAXIMIN 550 MG TABLET PO SCH ×2 (09:41→20:29)
[2019-05-06] MEDS: SPIRONOLACTONE 50 MG TABLET PO SCH (09:41)
[2019-05-06] MEDS: POTASSIUM CHLORIDE 20 MEQ TAB.ER.PRT PO SCH (09:41)
[2019-05-06] MEDS: MIDODRINE 5 MG TABLET PO SCH ×3 (09:42→20:29)
[2019-05-06 11:22] LABS: OCCULT BLOOD NEGATIVE (NEGATIVE)
[2019-05-06 12:04] VITALS: BP 106/70
[2019-05-06] MEDS ORDERED: LIDOCAINE 1%, 20ML ONE (12:31)
[2019-05-06 17:39] LABS: CELLS COUNTED 11
[2019-05-06 18:38] LABS: CELLS COUNTED 18
[2019-05-06 20:08] VITALS: BP 103/65
[2019-05-06 22:04] LABS: OCCULT BLOOD NEGATIVE (NEGATIVE)
[2019-05-07 02:59] VITALS: BP 99/63
[2019-05-07 06:42] LABS: ALANINE AMINOTRANSFERASE 20 U/L (12-78); ALBUMIN 1.4 g/dL (3.4-5.0); ANION GAP 5 mmol/L (5-15); CALCIUM 7.7 mg/dL (8.5-10.1); CHLORIDE 105 mmol/L (98-107); CREATININE 0.44 mg/dL (0.55-1.02)
[2019-05-07 06:44] LABS: ALKALINE PHOSPHATASE 95 U/L (45-117); BILIRUBIN,TOTAL 5.5 mg/dL (0.2-1.0); TOTAL PROTEIN 5.4 g/dL (6.4-8.2)
[2019-05-07 07:45] VITALS: BP 96/60
[2019-05-07 07:54] VITALS: BP 100/64
[2019-05-07] MEDS ORDERED: POTASSIUM CHLORIDE 20 MEQ TAB.ER.PRT PO ONE (08:00)
[2019-05-07] MEDS ORDERED: FAMOTIDINE 40 MG TABLET ONE ×2 (08:17→20:19)
[2019-05-07 08:24] LABS: BASOPHILS # (AUTO) 0.03 x10^3/uL (0-0.1); BASOPHILS % (AUTO) 1 % (0-1); EOSINOPHILS % (AUTO) 3 % (1-7); LYMPHOCYTES # (AUTO) 0.53 x10^3/uL (1-3.4); LYMPHOCYTES % (AUTO) 13 % (22-44); MD SCAN; MEAN CORPUSCULAR HEMOGLOBIN 36.6 pg (27.0-34.8); MEAN CORPUSCULAR HGB CONC 34.8 g/dL (32.4-35.8); MEAN CORPUSCULAR VOLUME 105.2 fL (80-100); MONOCYTES # (AUTO) 0.53 x10^3/uL (0.2-0.8); MONOCYTES % (AUTO) 13 % (2-9); NEUTROPHILS # (AUTO) 2.85 x10^3/uL (1.8-6.8); NEUTROPHILS % (AUTO) 71 % (42-75); RED CELL DISTRIBUTION WIDTH 15.8 % (9.6-15.2)
[2019-05-07] MEDS: RIFAXIMIN 550 MG TABLET PO SCH ×2 (08:27→20:21)
[2019-05-07] MEDS: FUROSEMIDE 80 MG TABLET PO SCH ×2 (08:27→16:07)
[2019-05-07] MEDS: POTASSIUM CHLORIDE 20 MEQ TAB.ER.PRT PO SCH (08:27)
[2019-05-07] MEDS: MIDODRINE 5 MG TABLET PO SCH ×3 (08:29→20:21)
[2019-05-07] MEDS: FAMOTIDINE 20 MG TABLET PO SCH ×2 (08:29→20:21)
[2019-05-07] MEDS: SPIRONOLACTONE 50 MG TABLET PO SCH (08:29)
[2019-05-07] MEDS ORDERED: morphine SULFATE 10 MG/ML, 1ML IVPush PRN (08:30)
[2019-05-07] MEDS ORDERED: OXYcodone IR 5MG TABLET PO PRN (08:30)
[2019-05-07 08:58] LABS: TROPONIN I < 0.015 ng/mL (0.000-0.045)
[2019-05-07 10:20] LABS: MEAN PLATELET VOLUME 5.9 fL (7.4-10.4); PLATELET COUNT 76 x10^3/uL (130-400)
[2019-05-07 13:49] VITALS: BP 104/69
[2019-05-07 14:10] LABS: TROPONIN I < 0.015 ng/mL (0.000-0.045)
[2019-05-07] MEDS ORDERED: LIDOCAINE 1%, 10ML ONE (17:19)
[2019-05-07 20:00] VITALS: BP 98/61
[2019-05-07 20:43] LABS: TROPONIN I < 0.015 ng/mL (0.000-0.045)
[2019-05-08 01:37] VITALS: BP 97/61
[2019-05-08 07:24] VITALS: BP 99/61
[2019-05-08] MEDS ORDERED: ACETAMINOPHEN 325 MG TABLET PO PRN (09:00)
[2019-05-08] MEDS ORDERED: FAMOTIDINE 40 MG TABLET ONE ×2 (09:20→20:11)
[2019-05-08] MEDS: LACTOBACILLUS CHEW TABLET PO SCH ×3 (09:28→20:20)
[2019-05-08] MEDS: MIDODRINE 5 MG TABLET PO SCH (09:28)
[2019-05-08] MEDS: FAMOTIDINE 20 MG TABLET PO SCH ×2 (09:28→20:20)
[2019-05-08] MEDS: RIFAXIMIN 550 MG TABLET PO SCH ×2 (09:29→20:20)
[2019-05-08] MEDS: SPIRONOLACTONE 50 MG TABLET PO SCH (09:30)
[2019-05-08] MEDS: POTASSIUM CHLORIDE 20 MEQ TAB.ER.PRT PO SCH (09:30)
[2019-05-08 10:19] LABS: ANION GAP 6 mmol/L (5-15); CALCIUM 7.4 mg/dL (8.5-10.1); CHLORIDE 99 mmol/L (98-107)
[2019-05-08] MEDS ORDERED: morphine SULFATE 10 MG/ML, 1ML IVPush PRN (11:30)
[2019-05-08 13:59] VITALS: BP 96/60
[2019-05-08] MEDS ORDERED: FUROSEMIDE 40 MG TABLET PO SCH (17:00)
[2019-05-08] MEDS: CARVEDILOL 3.125 MG TABLET PO SCH (17:19)
[2019-05-08 20:18] VITALS: BP 96/59
[2019-05-09 00:57] VITALS: BP 91/51
[2019-05-09 05:17] VITALS: BP 98/54
[2019-05-09] MEDS: CARVEDILOL 3.125 MG TABLET PO SCH ×2 (05:22→17:28)
[2019-05-09 06:03] LABS: % IRON SATURATION 41 % (20-55); ANION GAP 6 mmol/L (5-15); CALCIUM 7.3 mg/dL (8.5-10.1); CHLORIDE 101 mmol/L (98-107); CREATININE 0.62 mg/dL (0.55-1.02); IRON LEVEL 75 mcg/dL (50-170); TOTAL IRON BINDING CAPACITY 184 mcg/dL (250-450)
[2019-05-09 07:20] VITALS: BP 91/54
[2019-05-09] MEDS ORDERED: OXYcodone IR 5MG TABLET PO PRN (08:00)
[2019-05-09] MEDS ORDERED: SPIRONOLACTONE 25 MG TABLET PO SCH (09:00)
[2019-05-09] MEDS ORDERED: FUROSEMIDE 40 MG TABLET PO SCH (09:00)
[2019-05-09] MEDS ORDERED: FAMOTIDINE 40 MG TABLET ONE ×2 (09:56→20:35)
[2019-05-09] MEDS ORDERED: MAGNESIUM SULFATE PMX 4GM/100M 100 ML IV ONE (10:30)
[2019-05-09] MEDS: FUROSEMIDE 20 MG TABLET PO SCH (11:46)
[2019-05-09] MEDS: CALCIUM/VITAMIN D3 250-125 TABLET PO SCH ×2 (11:47→20:44)
[2019-05-09] MEDS: RIFAXIMIN 550 MG TABLET PO SCH ×2 (11:47→20:44)
[2019-05-09] MEDS: FAMOTIDINE 20 MG TABLET PO SCH ×2 (11:47→20:45)
[2019-05-09] MEDS: LACTOBACILLUS CHEW TABLET PO SCH ×3 (11:47→20:44)
[2019-05-09 13:54] VITALS: BP 97/60
[2019-05-09 19:08] VITALS: BP 97/57
[2019-05-10 01:38] VITALS: BP 95/59
[2019-05-10 05:50] VITALS: BP 95/58
[2019-05-10 05:55] LABS: ANION GAP 4 mmol/L (5-15); CALCIUM 7.4 mg/dL (8.5-10.1); CHLORIDE 100 mmol/L (98-107); CREATININE 0.56 mg/dL (0.55-1.02)
[2019-05-10] MEDS: CARVEDILOL 3.125 MG TABLET PO SCH (05:55)
[2019-05-10 07:37] VITALS: BP 97/60
[2019-05-10] MEDS ORDERED: SPIRONOLACTONE 50 MG TABLET PO SCH (09:00)
[2019-05-10] MEDS: FUROSEMIDE 20 MG TABLET PO SCH (09:23)
[2019-05-10] MEDS: FAMOTIDINE 20 MG TABLET PO SCH (09:23)
[2019-05-10] MEDS: LACTOBACILLUS CHEW TABLET PO SCH (09:23)
[2019-05-10] MEDS: CALCIUM/VITAMIN D3 250-125 TABLET PO SCH (09:23)
[2019-05-10] MEDS: RIFAXIMIN 550 MG TABLET PO SCH (09:23)
[2019-05-10] MEDS ORDERED: LIDOCAINE 1%, 10ML ONE (09:57)
[2019-05-10] MEDS ORDERED: CIPR250T27 PO (10:59)
== END 2019-05-10 13:59 | disposition home or self-care (01) | DRG 279 ==
LOC: ED 22:52 → EDIP 23:15 → 4EST 05-06 00:23 → DCLOUNGE 05-10 13:26
PROVIDERS: ADMIT Family Medicine; ATTEND Hospitalist
PROC: 0W993ZZ Drainage of Right Pleural Cavity, Percutaneous Approach (ICD-10-PCS; principal; 2019-05-06)
PROC: 0W9G3ZZ Drainage of Peritoneal Cavity, Percutaneous Approach (ICD-10-PCS; 2019-05-06)
PROC: 0W9G3ZZ Drainage of Peritoneal Cavity, Percutaneous Approach (ICD-10-PCS; 2019-05-07)
PROC: 0W993ZZ Drainage of Right Pleural Cavity, Percutaneous Approach (ICD-10-PCS; 2019-05-10)
DX: K72.90 Hepatic failure, unspecified without coma (principal); E43 Unspecified severe protein-calorie malnutrition; D68.9 Coagulation defect, unspecified; D69.6 Thrombocytopenia, unspecified; I27.20 Pulmonary hypertension, unspecified; E87.1 Hypo-osmolality and hyponatremia; K70.31 Alcoholic cirrhosis of liver with ascites; K70.11 Alcoholic hepatitis with ascites; J90 Pleural effusion, not elsewhere classified; K76.6 Portal hypertension; I85.10 Secondary esophageal varices without bleeding; Z68.38 Body mass index [BMI] 38.0-38.9, adult; B18.2 Chronic viral hepatitis C; D53.9 Nutritional anemia, unspecified; E83.42 Hypomagnesemia; K31.89 Other diseases of stomach and duodenum; Z66 Do not resuscitate; Z72.0 Tobacco use; B37.49 Other urogenital candidiasis
CPT/HCPCS: 32555; 36415; 82042; 82945; 83986; 87106; 89051; 96374; 96375; 99285; J3490; 49083; 71045; 71250; 80048; 80053; 81001; 82140; 82272; 82330; 83540; 83550; 83615; 83690; 83735; 83880; 84157; 84484; 85014; 85018; 85025; 85610; 85730; 87070; 87086; 87205; 93005; 93306; 93356; G0378; J2405; J2270; J3475

== ENCOUNTER 2019-06-02 19:06 | Emergency (ER) | payer MEDICAID, OTHER ==
[~2019-06-02] VITALS: Ht 162.6 cm; Wt 50.0 kg
[~2019-06-02 19:06] MED LIST changes: +CIPR250T27 PO
--- NOTE | 2019-06-02 19:21 | NUR ---
assisted pt into gown, applied monitors, siderail sup x2, provided pt with warm blanket, call light within reach
--- NOTE | 2019-06-02 20:14 | NUR ---
pt to ultrasound
[2019-06-02] MEDS ORDERED: LIDOCAINE 1%, 20ML ONE (20:19)
--- NOTE | 2019-06-02 21:10 | NUR ---
pt states she is unable to get a ride home to [place] azam hernández rn aware.
[2019-06-02 21:46] VITALS: BP 134/79
--- NOTE | 2019-06-02 21:48 | NUR ---
pt resting on gurney, denies needs, monitors in place. awaiting transfer home
--- NOTE | 2019-06-02 21:52 | NUR ---
pt requesting a taxi voucher to [place]
--- NOTE | 2019-06-02 21:52 | NUR ---
TP NOTE: DISCUSSED WITH PT REGARDING PT'S TRANSPORTATION HOME PT IS NOT CRITERIA FOR ARRANGING [facility]( [facility]) D/T PT IS AMBULATORY AND NO OXYGEN REQUIREMENT. PT STATED PT DOESNT HAVE MONEY TO GO HOME VIA TAXI EITHER. LAST OPTION IS [facility] FOR [facility] ONE NIGHT THEN PT'S BOYFRIEND WILL PICK PT UP HOME PER PT'S STATES. NOTIFIED TO DR DOMINGO ERP AGREED WITH PLAN . NOTIFIED TO AZEEM ARREDONDO PT WILL BE DC[facility]D TO [facility]IA [facility] TED PT'S VSS STABLE PT IS RM AIR. BP WDL.
--- NOTE | 2019-06-02 22:02 | NUR ---
pt able to ambulate without difficulty, denies needs, iv site d/c, homeostatis achieved
== END 2019-06-02 22:23 | disposition home or self-care (01) ==
LOC: ED 20:01
DX: K70.31 Alcoholic cirrhosis of liver with ascites (principal); Z87.891 Personal history of nicotine dependence
CPT/HCPCS: 49083; 71045; 99285; J3490